=== PATIENT | male | born 1950 | race Caucasian/White ===

== ENCOUNTER → 2019-05-20 07:39 | Outpatient (CLI) | payer MEDICARE, OTHER, SELFPAY ==
--- NOTE | 2019-05-20 08:51 | P.PCN_ITS ---
Cardiac Stress Test Report Referral & Results Date Patient Seen: 05/20/19 Time Patient Seen: 08:30 Requesting provider: Estrellita Nicole Indication: Chest pain Rest ECG: Normal sinus rhythm Procedure Note: Today following both written and verbal informed consent the patient was exercised according to a standard Sincere protocol patient went for a total of 9 minutes 52 seconds achieving a maximum heart rate of 134 maximum systolic blood pressure of 196. This is approximately 10.1 METS. Exercise was terminated at this point because of fatigue. Patient was also given Cardiolite through a previously started Hep-Lock IV by the dental laboratory technician apprentice approximately 1 minute prior to the cessation of exercise. No signs of symptoms of angina. Diffuse [address] deviations that resolved slowly with rest. APURVA-20% on active scale. Impression: Low probability for ischemia. Will await perfusion imaging. Please note: Actual ECG tracings can be found in the PACS system.
--- NOTE | 2019-05-23 21:58 | DI.NM.S_ITS ---
DATE OF SERVICE: 05/20/2019 PROCEDURE: Exercise perfusion study. INDICATIONS: Chest pain with underlying hypertension, hyperlipidemia.. RADIOPHARMACEUTICAL: 25.2 mCi technetium-99m Myoview IV was injected at stress and 25.7 mCi technetium-99m Myoview IV was injected at rest. CARDIAC STRESS: Patient underwent exercise perfusion study under the supervision of an attending staff. Patient walked on Sincere protocol for 9 minutes 52 seconds, achieved 88% of target heart rate with normal blood pressure response. Functional aerobic impairment -20%, and achieved 10.1 METs of workload. No chest pain. Baseline rhythm was sinus. There was some repolarization changes. During exercise, there was some nonspecific upsloping ST depression in inferolateral leads. No convincing ischemic changes. No significant arrhythmias. RAW DATA: There is increased subdiaphragmatic activity.. GATED STUDY: Resting LV ejection fraction 70 and stress LV ejection fraction 74%. No obvious wall motion abnormalities. Resting end-diastolic volume is 130 mL. No transient ischemic dilatation. TID ratio is 0.79, which is within normal limits. Lung/heart ratio is 0.18, which is within normal limits. MYOCARDIAL PERFUSION SCAN: Stress supine and resting supine images revealed small-sized mildly decreased perfusion of inferior apex. During prone images, inferoapical defect got improved. However, patient developed mildly decreased perfusion of anteroapex. No reversible ischemia. CONCLUSION: I will call this study a normal myocardial perfusion study with evidence of shifting tissue attenuation artifact as described above. Good exercise tolerance. Functional aerobic impairment -20%. Preserved left ventricular (LV) function. No significant convincing ischemia or arrhythmias on stress EKG. Overall, this is a low-risk myocardial perfusion scan. Immanuel Hillman - WILI/bety/ doc#: [id number]/job#: [id number] dd: 05/23/2019 16:41:00 dt: 05/23/2019 17:31:00 DICTATING MD/COPIES TO: Hansa Pope MD COPIES MNE: JORGE LUIS
== END ==
PROVIDERS: PCP Family Medicine; Visit Provider Physician Assistant Medical
DX: R07.9 Chest pain, unspecified (principal); I10 Essential (primary) hypertension; E78.5 Hyperlipidemia, unspecified
CPT/HCPCS: 78452; 93016; 93017; 93018; A9502